=== PATIENT | female | born 1965 | race Two or more races ===

== ENCOUNTER → 2024-11-06 | Outpatient (CLI) | payer MEDICAID, SELFPAY ==
--- NOTE | 2024-11-06 08:00 | XR_ITS ---
Examination: MRI lumbar spine without contrast Date and time of exam: November 06, 2024 0756 hours Comparison August 11 2002 INDICATIONS: Low back pain radiating down the left leg beginning 5 years ago numbness in the left leg Technique: Multiple MRI axial and sagittal sections lumbar spine. Sagittal T2-weighted images, TR 3500, TE 118 T1 weighted transverse sections, TR 688 T8.5, T2-weighted sagittal sections T1 weighted sagittal sections TR 621, TE 30 T2 axial sections, TR 4, 190, TE 84. Findings: Adequate alignment lumbar vertebral bodies on the lateral view Normal marrow signal lumbar vertebral bodies Minimal diffuse lumbar disc desiccation No significant lumbar disc narrowing No spondylolisthesis Axial images demonstrate no focal lumbar disc protrusion IMPRESSION: No lumbar fracture No focal lumbar disc protrusion
--- NOTE | 2024-11-06 08:30 | XR_ITS ---
Exam: MRI knee without contrast, left complete Date and time of exam: November 06, 2024 0756 hours INDICATIONS: Generalized knee pain 5 years joint clicking stiffness instability, diagnosis unilateral primary osteoarthritis left knee Technique: Multiple axial, coronal, and sagittal sections on the knee have been obtained. T2-Weighted sagittal, fat-suppressed images, TR 3,500, TE 62, T2 weighted coronal fat-saturated images, TR 3,500, TE 62 Proton density sagittal sections, TR 1800, TE 31. T-1 weighted coronal images, TR 524, TE 13.0 Findings: Medial meniscus anterior horn intact. Medial meniscus, body oblique linear tear communicating inferior articular surface, coronal image 16. Posterior horn medial meniscus intact. Lateral meniscus anterior horn is intact Lateral meniscus, body is intact Posterior horn lateral meniscus is intact Anterior cruciate ligament appears intact. Posterior cruciate ligament appears intact. Knee effusion is minimal. Quadriceps and patellar tendons appear intact. There is no evidence of tendinosis. Inflammatory change or fracture of Hoffa's fat pad is not seen. Medial patellar facet demonstrates mild thinning. Lateral patellar facet cartilage demonstrates mild thinning. Trochlear cartilage demonstrates mild thinning. Marrow signal adequate Medial collateral ligament appears intact. No meniscocapsular separation is seen. Illiotibial band and fibular collateral ligament are intact. Biceps femoris tendons appear intact. Medial femoral condylar articular cartilage demonstrates mild thinning. Lateral femoral condylar articular cartilage demonstratesmild thinning. Tibial plateau cartilage demonstrates mild thinning. Impression: Oblique linear tear body of the medial meniscus
== END | disposition home or self-care (01) ==
LOC: SMRI 07:19
PROVIDERS: PCP Nurse Practitioner Family; Referring Provider Orthopaedic Surgery; Visit Provider Orthopaedic Surgery
DX: M54.32 Sciatica, left side (principal); M17.12 Unilateral primary osteoarthritis, left knee; S83.242A Other tear of medial meniscus, current injury, left knee, initial encounter; X58.XXXA Exposure to other specified factors, initial encounter
CPT/HCPCS: 72148; 73721

== ENCOUNTER → 2025-06-15 | Outpatient (CLI) | payer MEDICAID, SELFPAY ==
--- NOTE | 2025-06-15 15:00 | XR_ITS ---
Examination: Abdomen sonogram, complete Date and time of exam: June 15, 2025 1504 hours INDICATIONS: Elevated liver function tests on laboratory examination this week of breath, burning epigastric pain 6 months. Technique: Multiple real-time grayscale transabdominal sonographic images of the abdomen have been obtained. Findings: Absent gallbladder Common bile duct 0.6 cm Pancreatic head 2.7 cm Aorta not enlarged. Liver 19.3 cm fatty infiltration no focal liver lesions Normal hepatopedal portal venous flow Patent IVC Right kidney 12.0 cm cortex 1.2 cm Left kidney 10.2 cm cortex 1.7 cm Spleen 10.4 cm IMPRESSION: Negative for common bile duct stones Moderate hepatomegaly fatty infiltration
== END | disposition home or self-care (01) ==
LOC: CDIM 14:40
PROVIDERS: PCP Student in an Organized Health Care Education/Training Program; Referring Provider Student in an Organized Health Care Education/Training Program; Visit Provider Student in an Organized Health Care Education/Training Program
DX: K76.0 Fatty (change of) liver, not elsewhere classified (principal)
CPT/HCPCS: 76700